=== PATIENT | female | born 1960 | race Caucasian/White ===

== ENCOUNTER → 2019-04-11 11:58 | Day surgery (SDC) | payer OTHER ==
[~2019-04-11 11:58] MED LIST: Acetaminophen TAB* 325 MG ONE; Acetaminophen TAB* 325 MG PO ONE; Buffered Lidocaine 1% SYRIN* 1 ML/SYRINGE INTRADERM ONE; Bupivacaine 0.25% EPI 200,000* 30 ML SDV ONE; Cisatracurium* 2 MG/ML MDV 5 ML ONE; Dexamethasone IV* 4 MG/ML 1 ML (4 MG) ONE; DiMENhydriNATE IV* 50 MG/ML VIAL IV PUSH PRN; Famotidine IV* 10 MG/ML 2 ML (20 mg) ONE; Gabapentin CAP(*) 400 MG PO ONE; HYDROcodone/ACETAMIN 5-325 MG* 1 TAB ONE; HYDROcodone/ACETAMIN 5-325 MG* 1 TAB PO PRN; HYDROmorphone INJ1* 1 MG/ML SYRINGE ONE; Lactated Ringers 1000 ML Bag* 1,000 ML IV SCH; Lidocaine 2% PF * 5 ML VIAL ONE; Midazolam* 1 MG/ML 2 ML VIAL (2 MG) ONE; Naloxone* 0.4 MG/ML 1 ML VIAL IV PRN; Ondansetron INJ* 2 MG/ML VIAL IV PRN; Ondansetron INJ* 2 MG/ML VIAL ONE; PROCHLORPERAZINE INJ 5 MG/ML 2 ML VIAL IV PRN; Phenylephrine 40 MCG/ML SYRINGE ONE; Propofol* 10 MG/ML 20 ML BTL ONE; Scopolamine 1.5 mg* PATCH TRANSDERM PRN; Scopolamine PATCH Remove* 1 NOTE MISC PATCH OFF ONE; Succinylcholine* 20 MG/ML 10 ML VIAL ONE; ceFAZolin 2 GM in NS PREMIX(*) 2 GM/100 ML BAG IVPB ONE; diPHENhydraMINE IV* 50 MG/ML 1 ml VIAL (BENADRYL) IV PRN; fentaNYL* 50 MCG/ML 2 ML VIAL (100 MCG VIAL) ONE
[2019-04-11] MEDS: fentaNYL* 50 MCG/ML 2 ML VIAL (100 MCG VIAL) IV PRN ×2 (19:16→19:55)
[2019-04-11 20:39] VITALS: BP 125/64
--- NOTE | 2019-04-12 00:51 | OP ---
CC: Luis Granados MD; GI [facility] * DATE OF OPERATION: 04/11/19 - SDS DATE OF : 62 SURGEON: Dr. Lobo. LOG CHECK SCALER: CONSUELO Garcia ANESTHESIOLOGIST: Bhupinder Lanier MD ANESTHESIA: General endotracheal. PRE-OP DIAGNOSIS: Symptomatic gallstones. POST-OP DIAGNOSIS: Chronic cholecystitis. OPERATIVE PROCEDURE: Laparoscopic cholecystectomy. ESTIMATED BLOOD LOSS: 25 mL. IV FLUID: 1.4 L crystalloid. SPECIMEN: Gallbladder and contents. DRAINS: None. COMPLICATIONS: None. COUNTS: Instrument, needle, and sponge counts were correct. DESCRIPTION OF PROCEDURE: The patient was brought to the operating room and placed on the table supine. Sequential compression devices were placed on both lower extremities. General anesthesia was administered. The patient was positioned and padded appropriately. She received appropriate intravenous antibiotics. Her abdomen was prepped and draped in the usual sterile fashion. A time-out was performed. Local anesthetic was infiltrated into the skin and soft tissue prior to making each incision. Entry into the abdomen was through a transumbilical vertical incision using an open technique. After accessing the peritoneal cavity, a 12- mm trocar was placed, carbon dioxide was insufflated to a pressure of 15 mmHg. Under direct visualization, 5-mm trocars were placed in the subxiphoid position and two in the right upper quadrant. Gallbladder was identified, appeared to be chronically inflamed with adherent fat. The fundus was grasped and retracted cephalad. The adherent fat was divided using a combination of sharp dissection, blunt dissection, and cautery. The infundibulum was grasped and retracted laterally and caudad. The peritoneum investing the gallbladder was incised and dissected free using a combination of sharp blunt dissection cautery. Cystic artery was identified, was bluntly dissected out, clipped, and divided. The cystic duct was then dissected out and medial and laterally the peritoneum was incised until the critical view was obtained and then the duct was doubly clipped and divided. The gallbladder was then freed from attachments to the liver staying in the avascular plane. The gallbladder was entered during the dissection and gallstones were extracted. The gallstones were placed into endoscopic retrieval bag along with the gallbladder at the end of the case. Inspection of the duct revealed that the clips were loose and so these were removed and 2 new clips applied and these were deemed to be well applied. Hemostasis was assured. Copious irrigation was performed until clear. Ports removed under direct visualization. Carbon dioxide was released. Umbilicus was closed with 0 Vicryl in aebwyw-mj-ikjwi fashion to approximate the fascia. Skin incisions were closed with 4-0 Monocryl in subcuticular fashion. Steri- Strips were applied. The patient tolerated the procedure well, was extubated, and transferred to Recovery in stable condition. [id number]/[facility] #: [id number] [facility] CENTERAnnetta
== END | disposition home or self-care (01) ==
LOC: OR 11:58
PROVIDERS: ATTEND Surgery
DX: K80.10 Calculus of gallbladder with chronic cholecystitis without obstruction (principal); E11.9 Type 2 diabetes mellitus without complications; Z79.84 Long term (current) use of oral hypoglycemic drugs; I10 Essential (primary) hypertension; F31.9 Bipolar disorder, unspecified; F41.8 Other specified anxiety disorders; K76.0 Fatty (change of) liver, not elsewhere classified
CPT/HCPCS: 88304; A9270-GY; J0330; J0690; J1100; J1170; J2250; J2405; J2704; J3010

== ENCOUNTER 2019-04-19 13:42 | Emergency (ER) | payer OTHER ==
--- OUTSIDE RECORDS SUMMARY | 2019-04-19 13:53 | XMS REPORT | Continuity of Care Document ---
:1960 External Reference #:[id number] Author Name Daniel Lobo MD, FACS (transmitted by agent of provider Alyson Casas) Address [address] [place] [address] Care Team Providers Name Role Phone Luis Granados MD - Family Medicine Care Team Information Cosmetic Manager Problems Description No Information Available Social History Type Date Description Comments Sex Unknown ETOH Use Denies alcohol use Recreational Drug Use Current Drug User Marijuana couple times a week Tobacco Use Start: Unknown Patient has never smoked Smoking Status Reviewed: 04/19/19 Patient has never smoked Exercise Type/Frequency Does not exercise Allergies, Adverse Reactions, Alerts Active Allergies Reaction Severity Comments Date Erythromycin GI Upset 03/16/2019 Medications Active Medications SIG Qnty Indications Ordering Provider Date Lisinopril 1 by mouth every Unknown 10mg Tablets day Gabapentin take one tablet Unknown 600mg Tablets by mouth three times a day Cymbalta 1 by mouth every Unknown 60mg Caps DR day Part Trazodone HCL take 1 tablet by Unknown 300mg mouth at bedtime Tablets Remeron 1 tab daily by Unknown 30mg Tablets mouth Xanax take one tab Unknown 2mg Tablets three times a day Metformin HCL take one tablet Unknown 1000mg by mouth once a Tablets day Zolpidem Tartrate 1 tab by mouth Unknown 10mg every night Tablets Concerta 1 by mouth twice Unknown 36mg Tablets ER a day Ibuprofen taking every 4 Unknown 400mg Tablets hours Immunizations Description No Information Available Vital Signs Date Vital Result Comment 04/19/2019 1:19pm Heart Rate 104 /min BP Systolic Sitting 144 mmHg BP Diastolic Sitting 90 mmHg Respiratory Rate 18 /min Body Temperature 98.4 F 03/24/2019 2:05pm Height 64 inches 5'4" Weight 188.00 lb Heart Rate 84 /min BP Systolic Sitting 140 mmHg BP Diastolic Sitting 80 mmHg Respiratory Rate 12 /min Body Temperature 97.3 F BMI (Body Mass Index) 32.3 kg/m2 Results Test Date Facility Test Result H/L Range Note Laboratory test 04/11/2019 [facility] Surgical SEE RESULT [address] [place] [address] [phone] Laboratory test 04/11/2019 [facility] Point of Care 115 mg/dL High 70-100 [address] [place] [address] [phone] 1 SEE RESULT BELOW Name: ROSALIE BILL : [address]: Daniel Lobo MD Acct: [id number] Unit: [id number] AGE: 59 Location: OR Re04/11/19 SEX: F Status: REG [facility] SPEC: [id number] MARIA ALEJANDRA: 04/11/[address] [facility] [address]: Daniel Lobo MD REQ: [id number] RECD: 04/11/19 STATUS: SOUT _ ORDERED: LEVEL 3 FINAL DIAGNOSIS Gallbladder, cholecystectomy: -- Chronic cholecystitis. -- Cholelithiasis. PRE-OPERATIVE DIAGNOSIS Cholecystitis GROSS DESCRIPTION The specimen is received in formalin labeled, Gallbladder, and consists of a 6.6 by up to 3.5 x 1.0 cm previously disrupted gallbladder. The serosa is wrinkled to shaggy fowler-colon with a small amount of adherent fat. Within the lumen and the container there are multiple brown-yellow smooth multifaceted intact and fragmented choleliths ranging from 0.4 cm to 1.4 cm in greatest dimension. The mucosa is shaggy to reticulated fowler brown and the wall thickness averages 0.3 cm. Correctional Supply Supervisor sections, one cassette. Signed by and Reported on: Manda Paz MD 04/13/19 1237 END OF REPORT DEPARTMENT OF PATHOLOGY, [address] [place] [address] Chris Rahman M.D. Director [facility] # [id number] 2 Strategic Account Executive: [id number] Procedures Date Code Description Status 04/11/2019 55995 Laparoscopy Cholecystectomy Completed 04/11/2019 61097 Laparoscopy Cholecystectomy Completed Medical Devices Description No Information Available Encounters Type Date Location Provider Dx Diagnosis Office Visit 03/24/2019 Surgical Daniel Lobo, K80.20 [facility] FACS gallbladder w/o cholecystitis w/o obstruction Assessments Date Code Description Provider 04/19/2019 K80.10 [facility] of gallbladder with chronic Daniel Lobo MD, FACS cholecystitis without obstruction 04/19/2019 K80.10 Calculus of gallbladder with chronic Ella Parkinson MD cholecystitis without obstruction 04/11/2019 K80.10 Calculus of gallbladder with chronic Daniel Lobo MD, FACS cholecystitis without obstruction 03/24/2019 K80.20 Calculus of gallbladder without Daniel Mecenas, MD, FACS cholecystitis without obstruction Plan of Treatment No Information Available Functional Status Description No Information Available Mental Status Description No Information Available Referrals Description No Information Available
--- OUTSIDE RECORDS SUMMARY | 2019-04-19 13:53 | XMS REPORT | Continuity of Care Document ---
:1960 External Reference #:[id number] Author Name Daniel Lobo MD, FACS (transmitted by agent of provider Rosalinda Munoz) Address [address] [facility] [address] [place] [address] Care Team Providers Name Role Phone Luis Granados MD - Family Medicine Care Team Information [employer]fuels Product Development Manager Problems Description No Information Available Social History Type Date Description Comments Sex Unknown ETOH Use Denies alcohol use Recreational Drug Use Current Drug User Marijuana couple times a week Tobacco Use Start: Unknown Patient has never smoked Smoking Status Reviewed: 03/24/19 Patient has never smoked Exercise Type/Frequency Does [...] twice Unknown 36mg Tablets ER a day Immunizations Description No Information Available Vital Signs Date Vital Result Comment 03/24/2019 2:05pm Height 64 inches 5'4" Weight 188.00 lb Heart Rate 84 /min BP Systolic Sitting 140 mmHg BP Diastolic Sitting 80 mmHg Respiratory Rate 12 /min Body Temperature 97.3 F BMI (Body Mass Index) 32.3 kg/m2 Results Description No Information Available Procedures Description No Information Available Medical Devices Description No Information Available Encounters Description No Information Available Assessments Date Code Description Provider 03/24/2019 K80.20 Calculus of gallbladder without Daniel Lobo MD, FACS cholecystitis without obstruction Plan of Treatment Future Appointment(s):04/19/2019 1:30 pm - Ashok Grigsby MD at [facility]04/11/2019 1:00 pm - Karin Park NP at [facility]04/11/2019 1:00 pm - Daniel Lobo MD, FACS at [facility]03/24/2019 - Daniel Lobo MD, [id number] Calculus of gallbladder without cholecystitis without obstruction Functional Status Description No Information Available Mental Status Description No Information Available Referrals Description No Information Available
[2019-04-19 15:04] LABS: ABS Basophils 0.1 10^3/ul (0-0.2); ABS Eosinophils 0.7 10^3/ul (0-0.6); ABS Lymphocytes 2.1 10^3/ul (1.0-4.8); ABS Monocytes 0.7 10^3/ul (0-0.8); ABS Neutrophils 7.8 10^3/ul (1.5-7.7); Eosinophil % 6.6 %; Hematocrit 45 % (35-47); Hemoglobin 14.8 g/dL (12.0-16.0); Lymphocyte % 18.1 %; Mean Corpuscular HGB Conc 33 g/dL (31-36); Mean Corpuscular Hemoglobin 30 pg (27-31); Mean Corpuscular Volume 90 fL (80-97); Mean Platelet Volume 6.7 fL (7.4-10.4); Nucleated Red Blood Cells % 0.1; Platelet Count 376 10^3/uL (150-450); Red Blood Count 4.93 10^6 /uL (3.70-4.87); Red Cell Distribution Width 14 % (10-15); White Blood Count 11.3 10^3/uL (3.5-10.8)
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
[2019-04-19 15:44] LABS: Albumin 4.5 g/dL (3.2-5.2); Albumin/Globulin Ratio 1.7 (1-3); BUN/Creatinine Ratio 7.9 (8-20); C Reactive Protein 6.01 mg/L (<8.01); Calcium 9.9 mg/dL (8.6-10.3); EGFR African American 78.8 (>60); EGFR Non-African American 65.1 (>60); Globulin 2.6 g/dL (2-4); Magnesium 2.2 mg/dL (1.9-2.7); Total Bilirubin 0.3 mg/dL (0.2-1.0); Total Protein 7.1 g/dL (6.4-8.9)
[2019-04-19] MEDS ORDERED: Ondansetron INJ* 2 MG/ML VIAL IV ONE (15:48)
[2019-04-19] MEDS ORDERED: NS 0.9% 1000 ML** 1,000 ML IV ONE ×2 (15:48→16:03)
[2019-04-19] MEDS ORDERED: Morphine 4 MG/ML VIAL (1 ml) 4 MG/ML VIAL IV ONE (15:48)
[2019-04-19] MEDS ORDERED: Clindamycin 600 MG IVPREMIX(* 600 MG/50 ML SDV IV ONE (16:00)
[2019-04-19] MEDS ORDERED: fentaNYL* 50 MCG/ML 2 ML VIAL (100 MCG VIAL) IV SLOW PU ONE (16:22)
[2019-04-19] MEDS ORDERED: Clindamycin 600 MG/D5W BAG(*) 600 MG/50 ML BAG IV ONE (17:00)
--- NOTE | 2019-04-19 17:51 | PN ---
Progress Note - Progress Note Date of Service: 04/19/19 SOAP: Subjective: 59 yo female POD 8 s/p laparoscopic cholecystectomy referred to ED from our office for complaint of umbilical pain, diarrhea and chills. denies fever. denies vomiting comfortable now in ED bed, son at bedside [] Objective: Temp Pulse Resp BP Pulse Ox 98.4 F 81 18 97/71 94 04/19/19 16:29 04/19/19 16:20 04/19/19 16:27 04/19/19 16:19 04/19/19 16:20 Laboratory Results - last 24 hr 04/19/19 04/19/19 04/19/19 14:52 14:52 14:52 WBC 11.3 H RBC 4.93 H Hgb 14.8 Hct 45 MCV 90 MCH 30 MCHC 33 RDW 14 Plt Count 376 MPV 6.7 L Neut % (Auto) 68.7 Lymph % (Auto) 18.1 [place] % (Auto) 6.1 Eos % (Auto) 6.6 Baso % (Auto) 0.5 Absolute Neuts (auto) 7.8 H Absolute Lymphs (auto) 2.1 Absolute Monos (auto) 0.7 Absolute Eos (auto) 0.7 H Absolute Basos (auto) 0.1 Absolute Nucleated RBC 0.0 Nucleated RBC % 0.1 Sodium 142 Potassium 4.0 Chloride 105 Carbon Dioxide 28 Anion Gap 9 BUN 7 Creatinine 0.89 Est GFR ( Amer) 78.8 Est GFR (Non-Af Amer) 65.1 BUN/Creatinine Ratio 7.9 L Glucose 91 Lactic Acid 2.3 H* Calcium 9.9 Magnesium 2.2 Total Bilirubin 0.30 AST 18 ALT 36 Alkaline Phosphatase 50 C-Reactive Protein 6.01 Total Protein 7.1 Albumin 4.5 Globulin 2.6 Albumin/Globulin Ratio 1.7 Lipase 18 PEX: Abdomen soft, grossly non tender, - Neville's, mild incisional tenderness at the umbilical site. Incisions C/D/I no bleeding, no discharge no blanching No eccymosis Gallbladder US: IMPRESSION: 1. STATUS POST CHOLECYSTECTOMY. NO FREE INTRAPERITONEAL FLUID OR LOCALIZED FLUID COLLECTIONS ARE SEEN. 2. MILD HEPATOMEGALY AND FINDINGS SUGGESTIVE OF HEPATIC STEATOSIS. 3. FINDINGS MOST CONSISTENT WITH A COMPLEX CYST WITHIN THE RIGHT HEPATIC LOBE. RECOMMEND A FOLLOW-UP RIGHT UPPER QUADRANT ULTRASOUND IN 6 MONTHS TIME. [] Assessment: as above, no sign of abcess, infection, surgical issues. [] Plan: IV fluids, repeat lactic acid, ok for discharge from surgical standpoint. Call office in AM to schedule a follow up in 1 week. Patient was also seen and examined by Dr Grigsby who agreed with above. All questions were answered. []
[2019-04-19] MEDS ORDERED: oxyCODONE/Acetamin 5/325 MG* TAB PO ONE (18:54)
[2019-04-19 19:04] VITALS: BP 115/74
== END 2019-04-19 19:04 | disposition home or self-care (01) ==
LOC: ED 13:42
DX: G89.18 Other acute postprocedural pain (principal); E86.0 Dehydration; R07.9 Chest pain, unspecified; R11.2 Nausea with vomiting, unspecified; Z88.0 Allergy status to penicillin; E11.9 Type 2 diabetes mellitus without complications; I10 Essential (primary) hypertension; Z87.442 Personal history of urinary calculi; F41.9 Anxiety disorder, unspecified; F32.9 Major depressive disorder, single episode, unspecified; K91.5 Postcholecystectomy syndrome
CPT/HCPCS: 36415; 76705; 80053; 83605; 83690; 83735; 85025; 86140; 96361; 96374; 96375; 99283; A9270-GY; J2270; J2405; J3010